=== PATIENT | male | born 1985 | race Caucasian/White ===

== ENCOUNTER 2019-07-11 07:24 | Inpatient (IN) ==
--- OUTSIDE RECORDS SUMMARY | 2019-07-11 07:26 | External Medical Summary | Continuity of Care Document ---
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) Palpitations (785.1) (R00.2) Allergies and Adverse Reactions No Known Drug Allergies (Allergy) Medications Escitalopram Oxalate 20 MG Oral Tablet; 1/2 tablet dalily for 1 week, then 1 daily Asha Chand Start: 13-Jul-2018 Quantity: 30 Refills: 2 Amoxicillin-Pot Clavulanate 875-125 MG Oral Tablet; Ta ke 1 tablet twice daily Asha Chand Start: 13-Jul-2018 Quantity: 20 Refills: 0 predniSONE 20 MG Oral Tablet; TAKE 2 TABLETS DAILY WITH FOOD Asha Chand Start: 13-Jul-2018 Quantity: 10 Refills: 0 Procedures Procedures not documented Immunizations DTaP, IPV/Hib (Pentacel) On: 1985 DTaP, IPV/Hib (Pentacel) On: 1985 DTaP On: Feb-1987 DTaP, IPV/Hib (Pentacel) On: 23-Jul-1988 MMR On: 23-Jul-1988 HIB On: Mar-1989 DTaP, IPV/Hib (Pentacel) On: 05-Apr-1993 MMR On: 12-Jul-1996 Hepatitis B On: 16-Oct-1999 Hepatitis B On: 22-Nov-1999 Hepatitis B On: 07-Jul-2000 DT On: 01-Jun-2003 Tubersol 5 UNIT/0.1ML Intradermal Solution On: 22-Sep-2018 8: 39 Lot #: [id number], [employer]ADDE[employer] PA[employer]UR Social History - Smoking Status Never smoker Plan of Treatment Planned Observations Planned Goals not documented Results No Known Results Results not documented Encounters Appointment; Nurse Shlomo 22-Sep-2018 8:15 Encounter Diagnosis: Problem not documented Appointment; Anitha Chand M.D. 13-Jul-2018 9:30 Encounter Diagnosis: Problem not documented Appointment; Kate Mars CRNP 24-Oct-2017 8:30 Encounter Diagnosis: Problem not documented Appointment; Luma Cartwright M.D. 23-Sep-2017 8:45 Encounter Diagnosis: Problem not documented Appointment; Nurse Shlomo 24-Sep-2018 8:15 Encounter Diagnosis: Problem not documented
[2019-07-11] MEDS ORDERED: ONDANSETRON INJ 2 MG/ML 2 ML VIAL IV STA (07:47)
[2019-07-11] MEDS: MoRPHine SULFATE 4 MG/ML 1 ML CARP\\VIAL IV PRN ×4 (07:56→18:22)
[2019-07-11] MEDS ORDERED: SODIUM CHLORIDE 0.9% 1000ML 1,000 ML IV SCH (08:00)
[2019-07-11 08:02] LABS: Basophils # (auto) 0.02 K/uL (0-0.2); Basophils % (auto) 0.2 %; Eosinophils # (auto) 0.03 K/uL (0-0.5); Eosinophils % (auto) 0.3 %; Hematocrit (blood only) 44.3 % (42-52); Hemoglobin 16.2 g/dL (14.0-18.0); Immature Granulocytes # (auto) 0.02 K/uL (0.00-0.02); Immature Granulocytes % (auto) 0.2 %; Lymphocytes # (auto) 1.22 K/uL (1.2-3.4); Lymphocytes % (auto) 11.4 %; Mean Corpuscular Hemoglobin 31.8 pg (25-34); Mean Corpuscular Hgb Conc 36.6 g/dL (32-36); Mean Platelet Volume 9.9 fL (7.4-10.4); Monocytes # (auto) 0.25 K/uL (0.11-0.59); Monocytes % (auto) 2.3 %; Neutrophils # (auto) 9.14 K/uL (1.4-6.5); Neutrophils % (auto) 85.6 %; Platelet Count 282 K/uL (130-400); RDW Coefficient of Variation 12.4 % (11.5-14.5); RDW Standard Deviation 39.8 fL (36.4-46.3); Red Blood Count 5.09 M/uL (4.7-6.1); White Blood Count 10.68 K/uL (4.8-10.8)
[2019-07-11 08:06] LABS: INR 1.1 (0.9-1.1); Prothrombin Time 10.9 Seconds (9.0-12.0)
[2019-07-11 08:09] LABS: Albumin Level 4.9 gm/dl (3.4-5.0); Calcium 9.9 mg/dl (8.5-10.1); Creatinine Clr Calc Pharmacy 129.7 ml/min; Est GFR (African American) 97.4; Potassium 3.8 mmol/L (3.5-5.1)
[2019-07-11 08:12] LABS: Albumin Globulin Ratio 1.4 (0.9-2); Bilirubin,Total 0.5 mg/dl (0.2-1); Globulin 3.4 gm/dl (2.5-4.0); Total Protein 8.3 gm/dl (6.4-8.2)
[2019-07-11 08:12] LABS: iSTAT Hemoglobin 14.3 g/dl (14.0-18.0); iSTAT Ionized Calcium 1.28 mmol/l (1.12-1.32); iSTAT Potassium 3.8 mEq/L (3.3-5.0)
--- NOTE | 2019-07-11 08:13 | XRay Report ---
XR chest 1V portable CLINICAL HISTORY: 34 years-old Male presenting with abd pain. TECHNIQUE: Portable upright AP view of the chest was obtained. COMPARISON: 02/27/2016. FINDINGS: Cardiomediastinal silhouette normal. No focal opacity. No large effusion or pneumothorax. Osseous str uctures normal. Upper abdomen normal. IMPRESSION: 1. No acute cardiopulmonary disease. Electronically signed by: Manas Valencia M.D. 07/11/2019 8:12 AM
[2019-07-11] MEDS ORDERED: HYDROmorphone INJ 1 MG/ML SYRINGE ONE (08:21)
[2019-07-11] MEDS: HYDROmorphone INJ 1 MG/ML SYRINGE IV PRN ×2 (08:23→09:35)
[2019-07-11] MEDS ORDERED: IOVERSOL 100ml IV PRN (08:42)
--- NOTE | 2019-07-11 08:57 | CT Scan Report ---
CT abd pelvis IV con only CLINICAL HISTORY: 34 years-old Male presenting with LLQ and generalized abdominal pain. TECHNIQUE: Multidetector CT of the abdomen and pelvis was performed after the administration of intra venous contrast. IV contrast: 95 mL of Optiray 320. One or more dose lowering techniques were used co nsistent with the principles of ALARA (as low as reasonably achievable), including automatic exposure control, mA or kV adjustment to individual patient size, and/or use of iterative reconstruction. COMPARISON: 09/20/2016. CT DOSE (mGy.cm): The estimated cumulative dose is 1502.17 mGy.cm. 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 Lung bases: Normal heart size. No pericardial or pleural effusion. No focal infiltrate or nodule at t he lung bases. Liver: Normal morphology. No liver lesion. Patent hepatic vasculature. Biliary: No intrahepatic or extrahepatic biliary ductal dilatation. Normal gallbladder. Pancreas: Normal. Spleen: Normal. Adrenal glands: Normal. Kidneys and ureters: Normal. No hydronephrosis. Bladder: Incompletely evaluated secondary to underdistention. Pelvic organs: Prostate and seminal vesicles normal. Bowel: Normal appendix. Feces in the terminal ileum consistent with delayed transit or bacterial over growth. Discontinuous sites of feces in the ileum without convincing evidence of a high-grade partial or complete bowel obstruction. Peritoneal cavity: No free fluid or intraperitoneal gas. Lymph nodes: No enlarged lymph nodes in the abdomen or pelvis. Vasculature: Aorta and IVC patent and normal in caliber. Abdominal wall: Small fat-containing left inguinal hernia. Musculoskeletal: Normal. IMPRESSION: 1. Discontinuous sites of fecal material within ileum and terminal ileum without convincing evidence of a high-grade partial or complete bowel obstruction. This may indicate bacterial overgrowth or del ayed transit. Alternatively, there could be multifocal sites of low-grade partial bowel obstructions though this is less likely. 2. No other evidence of acute intra-abdominal pathology. Electronically signed by: Manas Valencia M.D. 07/11/2019 8:56 AM
[2019-07-11 09:26] LABS: Appearance Urine Clear (Clear); Bilirubin Urine Negative (Negative); Blood Urine Negative (Negative); Color Urine Yellow; Glucose Urine UA Negative (Negative); Ketones Urine Negative (Negative); Leukocyte Esterase Urine Negative (Negative); Nitrite Urine Negative (Negative); Protein Urine Negative (Negative); Specific Gravity Urine > 1.045 (1.000-1.030); Urobilinogen Urine Negative (Negative)
--- NOTE | 2019-07-11 10:15 | Emergency Department Note ---
Entered by Yamileth Barrera acting as a scribe for Mino Corado DO History of Present Illness General Chief complaint: Abdominal Pain Stated complaint: ABD/BACK PAIN Source: patient History of Present Illness Provider complaint: Abdominal pain Onset (ago): week(s) 2 Location: back and abdomen Radiation: back Pain Consistency: + constant Maximum Pain Intensity: 10 Quality: + sharp Associated symptoms: + chest pain, + nausea/vomiting and + other (Positive: back pain, left lower abdominal pain, diarrhea, black tarry stools, intermittent right testicular pain) The patient is a 34 year old male with past medical history of abdominal pain who presents to the ED with complaints of constant sharp left lower abdominal pain that radiates to the back that started 2 weeks ago. The patient reports he has had diarrhea and black tarry stools for the last 4 days. He states his pain intensified around midnight to the point he was not able to get any relief. The patient notes he has nausea and vomiting. He additionally states he has had 5 episodes of watery stools in the last 24 hours. The patient reports his chest hurts when he breathes. He states he has had intermittent right testicular pain in the past but the pain is currently not present. Home Medications Home Medications Medication Instructions Recorded Confirmed Type No Known Home Medications 07/11/19 07/11/19 History Allergies Allergy/AdvReac Type Severity Reaction Status Date / Time cefaclor Allergy Unknown HIVES Verified 07/11/19 08:03 Past Med/Surg History Medical History Abdominal pain (Acute) Epigastric abdominal pain (Acute) Forehead laceration (Acute) Family History Other Cancer Diabetes Heart disease Hypertension Social History Preferred Language: Macedonian Communication Ability: Effective Lead Assistant Manager Required: No Beliefs That Will Affect Care: None Current Living Situation: Spouse Other Information That Helps Us Care for You: No Feels Safe at Home: Yes Safety Concerns: Feels Safe At This Time Smoking Status: Light tobacco smoker Tobacco Type: cigarettes ; Cigarettes Per Day: 1 pack in a year ; Do You Dip or Chew Tobacco: No ; Second Hand Exposure: No ; Tobacco Cessation Education Requested by Patient: No Hx Alcohol Use: Yes Hx Substance Use: No Review of Systems See HPI for pertinent positives & negatives. and A total of 10 systems reviewed and were otherwise negative Physical Exam Vital Signs Vital Signs - 24 hr 07/11/19 07:26 07/11/19 09:17 Temperature 36.5 C Temperature Source Oral Sepsis Recent Fever Within 48 Hours No Sepsis New/Unexplained Change in Mental Status No Sepsis Action Taken by Nursing No Action Required Pulse Rate 71 Pulse Rate [Apical] 74 Pulse Rhythm [Apical] Regular Pulse Strength [Apical] Normal Respiratory Rate 22 18 Respiratory Effort / Characteristics Non-Labored Non-Labored Spontaneous Respiratory Depth Normal Normal Respiratory Pattern Regular Blood Pressure 161/101 H Blood Pressure [Right Arm] 160/87 H Blood Pressure Mean 121 Blood Pressure Mean [Right Arm] 111 Blood Pressure Position Sitting Pulse Oximetry 100 98 Oxygen Delivery Method Room Air Room Air GENERAL: Patient is awake, alert, and in moderate distress. Patient is very uncomfortable and anxious appearing. EYES: The conjunctivae are clear. The pupils are round and reactive. EARS, NOSE, MOUTH AND THROAT: The nose is without any evidence of any deformity. Mucous membranes are moist.Tongue is midline NECK: The neck is nontender and supple. RESPIRATORY: Normal respiratory effort is noted. There is no evidence of wheezing rhonchi or rales to auscultation. CARDIOVASCULAR: Regular rate and rhythm noted. There no murmurs rubs or gallops normal S1 normal S2 GASTROINTESTINAL: The abdomen is soft. Bowel sounds are present in all quadrants. Abdomen is moderately distended and diffusely tender. There is guarding in the left upper and lower to palpation. BACK: No midline tenderness or or step-off noted range of motion in flexion extension as well as rotation no signs of muscle spasm noted. RECTAL: Brown stool, heme negative. Testicles were descended and non-tender bilaterally. MUSCULOSKELETAL/EXTREMITIES: There is no evidence of gross deformity. Full range of motion is noted in the hips and shoulders. SKIN: There is no obvious evidence of any rash. There are no petechiae, pallor or cyanosis noted. Cool and diaphoretic. No pedal edema. NEUROLOGIC: Patient is awake alert and oriented x3. Strength is symmetric. Patellar reflexes are 2+ bilaterally. Course 0736: The patient was evaluated in room A10 by the medical student, Jayme Patel, under my supervision. 0746: The patient was evaluated in room A10. A complete history and physical exam was performed. 0917: Upon reevaluation, the patient is resting comfortably. I discussed laboratory and radiographic results with him. The patient verbalized agreement of the treatment plan. The patient will be evaluated for further management and care. 0936: I discussed the braden's case with Dr. Delacruz, [facility] Hospitalist. He will evaluate the patient for further management. Consultations Consultation #1: I discussed the braden's case with Dr. Delacruz, [facility] ospitalist. He will evaluate the patient for further management. Time: 09:36 Administered Medications Lactated Ringer's (Lr) 1,000 mls @ 80 mls/hr IV .[id number] ANTELMO Stop: 08/10/19 10:18 Last Admin: 07/11/19 10:37 Dose: 80 mls/hr Documented by: [id number] Ciprofloxacin (Cipro) 400 mg in 200 mls @ 100 mls/hr IV Q12H ANTELMO; Protocol Stop: 07/21/19 11:14 Last Infusion: 07/11/19 14:50 Dose: 0 mls/hr Documented by: [id number] Admin: 07/11/19 12:58 Dose: 100 mls/hr Documented by: [id number] Metronidazole (Flagyl) 500 mg in 100 mls @ 100 mls/hr IV Q8H ANTELMO Stop: 07/21/19 11:14 Last Infusion: 07/11/19 14:00 Dose: 0 mls/hr Documented by: [id number] Admin: 07/11/19 12:58 Dose: 100 mls/hr Documented by: [id number] Morphine Sulfate (Morphine Sulfate) 4 mg IV Q4H PRN PRN Reason: Severe Pain Stop: 07/25/19 10:18 Last Admin: 07/11/19 14:38 Dose: 4 mg Documented by: [id number] Ondansetron HCl (Zofran) 4 mg IV Q6H PRN PRN Reason: Nausea Stop: 08/10/19 10:18 Last Admin: 07/11/19 14:38 Dose: 4 mg Documented by: [id number] Discontinued Medications Hydromorphone HCl (Dilaudid) Confirm Administered Dose 1 mg .ROUTE .STK-MED ONE Stop: 07/11/19 08:22 Last Admin: 07/11/19 08:24 Dose: Not Given Documented by: [id number] Hydromorphone HCl (Dilaudid) 1 mg IV Q15M PRN PRN Reason: Pain Stop: 07/25/19 08:20 Last Admin: 07/11/19 09:35 Dose: 1 mg Documented by: [id number] Admin: 07/11/19 08:23 Dose: 1 mg Documented by: [id number] Sodium Chloride (Nss 1000ml) 1,000 mls @ 999 mls/hr IV .Q1H1M ANTELMO Stop: 07/11/19 09:00 Last Infusion: 07/11/19 09:14 Dose: 0 mls/hr Documented by: [id number] Admin: 07/11/19 07:56 Dose: 999 mls/hr Documented by: [id number] Famotidine 20 mg/ Syringe 5 mls @ 2.5 mls/min IV NOW ONE Stop: 07/11/19 11:31 Last Admin: 07/11/19 12:58 Dose: 2.5 mls/min Documented by: [id number] Ioversol (Optiray 320 100ml) 95 ml IV ONCE PRN PRN Reason: Interaction Checking Stop: 07/15/19 08:41 Last Admin: 07/11/19 08:43 Dose: 95 ml Documented by: [id number] Morphine Sulfate (Morphine Sulfate) 4 mg IV Q15M PRN PRN Reason: Pain Stop: 07/25/19 07:46 Last Admin: 07/11/19 08:11 Dose: 4 mg Documented by: [id number] Admin: 07/11/19 07:56 Dose: 4 mg Documented by: [id number] Morphine Sulfate (Morphine Sulfate) Confirm Administered Dose 4 mg .ROUTE .STK- MED ONE Stop: 07/11/19 10:28 Last Admin: 07/11/19 10:37 Dose: 4 mg Documented by: [id number] Ondansetron HCl (Zofran) 4 mg IV NOW STA Stop: 07/11/19 07:48 Last Admin: 07/11/19 07:56 Dose: 4 mg Documented by: [id number] Medical Decision Making Differential Diagnosis Differential diagnosis: Etiologies such as appendicitis, diverticulitis, PUD, biliary pathology, UTI, pancreatitis, obstruction, mesenteric ischemia, aortic pathology, infections, inflammatory bowel disease, renal colic, as well as others were entertained. Medical Records Attestation: I reviewed the patient's medical records. Home Medications Current Medication List: was personally reviewed by me (No known home medications ) Laboratory Data Attestation: I reviewed the patient's lab results. Result diagrams: 07/11/19 07:40 07/11/19 07:40 Lab Results 07/11/19 07/11/19 07/11/19 Range/Units 07:40 07:40 07:40 WBC 10.68 (4.8-10.8) K/uL RBC 5.09 (4.7-6.1) M/uL Hgb 16.2 (14.0-18.0) g/dL POC Hgb (14.0-18.0) g/dl Hct 44.3 (42-52) % POC Hct (42-52) % MCV 87.0 (80-100) fL MCH 31.8 (25-34) pg MCHC 36.6 H (32-36) g/dL RDW Std Deviation 39.8 (36.4-46.3) fL RDW Coeff of Eulalio 12.4 (11.5-14.5) % Plt Count 282 (130-400) K/uL MPV 9.9 (7.4-10.4) fL Immature Gran % (Auto) 0.2 % Neut % (Auto) 85.6 % Lymph % (Auto) 11.4 % Rapides % (Auto) 2.3 % Eos % (Auto) 0.3 % Baso % (Auto) 0.2 % Immature Gran # (Auto) 0.02 (0.00-0.02) K/uL Neut # (Auto) 9.14 H (1.4-6.5) K/uL Lymph # (Auto) 1.22 (1.2-3.4) K/uL Rapides # (Auto) 0.25 (0.11-0.59) K/uL Eos # (Auto) 0.03 (0-0.5) K/uL Baso # (Auto) 0.02 (0-0.2) K/uL PT 10.9 (9.0-12.0) Seconds INR 1.1 (0.9-1.1) POC Sodium (135-144) mEq/L Sodium 142 (136-145) mmol/L POC Potassium (3.3-5.0) mEq/L Potassium 3.8 (3.5-5.1) mmol/L POC Chloride (101-112) mEq/L Chloride 108 H (98-107) mmol/L Carbon Dioxide 26 (21-32) mmol/L POC Total CO2 (24-31) mEq/l Anion Gap 8.0 (3-11) POC Anion Gap (16-25) mmol/L POC BUN (7-18) mg/dl BUN 17 (7-18) mg/dl Creatinine 1.14 (0.6-1.4) mg/dl POC Creatinine (0.6-1.3) mg/dl Est Cr Clr Drug Dosing 129.7 ml/min Est GFR ( Amer) 97.4 Est GFR (Non-Af Amer) 84.0 BUN/Creatinine Ratio 15.0 (10-20) Glucose 126 H (70-99) mg/dl POC Glucose (other) (70-99) mg/dl Calcium 9.9 (8.5-10.1) mg/dl POC Ioniz Calcium Cristian (1.12-1.32) mmol/l Total Bilirubin 0.5 (0.2-1) mg/dl AST 21 (15-37) U/L ALT 49 (12-78) U/L Alkaline Phosphatase 48 (45-117) U/L Total Protein 8.3 H (6.4-8.2) gm/dl Albumin 4.9 (3.4-5.0) gm/dl Globulin 3.4 (2.5-4.0) gm/dl Albumin/Globulin Ratio 1.4 (0.9-2) Lipase 84 (73-393) U/L Urine Color Urine Appearance (Clear) Urine pH (4.5-7.5) Ur Specific Sarles (1.000-1.030) Urine Protein (Negative) Urine Glucose (UA) (Negative) Urine Ketones (Negative) Urine Blood (Negative) Urine Nitrite (Negative) Urine Bilirubin (Negative) Urine Urobilinogen (Negative) Ur Leukocyte Esterase (Negative) 07/11/19 07/11/19 Range/Units 07:59 09:15 WBC (4.8-10.8) K/uL RBC (4.7-6.1) M/uL Hgb (14.0-18.0) g/dL POC Hgb 14.3 (14.0-18.0) g/dl Hct (42-52) % POC Hct 42 (42-52) % MCV (80-100) fL MCH (25-34) pg MCHC (32-36) g/dL RDW Std Deviation (36.4-46.3) fL RDW Coeff of Eulalio (11.5-14.5) % Plt Count (130-400) K/uL MPV (7.4-10.4) fL Immature Gran % (Auto) % Neut % (Auto) % Lymph % (Auto) % Rapides % (Auto) % Eos % (Auto) % Baso % (Auto) % Immature Gran # (Auto) (0.00-0.02) K/uL Neut # (Auto) (1.4-6.5) K/uL Lymph # (Auto) (1.2-3.4) K/uL Rapides # (Auto) (0.11-0.59) K/uL Eos # (Auto) (0-0.5) K/uL Baso # (Auto) (0-0.2) K/uL PT (9.0-12.0) Seconds INR (0.9-1.1) POC Sodium 143 (135-144) mEq/L Sodium (136-145) mmol/L POC Potassium 3.8 (3.3-5.0) mEq/L Potassium (3.5-5.1) mmol/L POC Chloride 105 (101-112) mEq/L Chloride (98-107) mmol/L Carbon Dioxide (21-32) mmol/L POC Total CO2 25 (24-31) mEq/l Anion Gap (3-11) POC Anion Gap 18.0 (16-25) mmol/L POC BUN 17 (7-18) mg/dl BUN (7-18) mg/dl Creatinine (0.6-1.4) mg/dl POC Creatinine 1.0 (0.6-1.3) mg/dl Est Cr Clr Drug Dosing ml/min Est GFR ( Amer) Est GFR (Non-Af Amer) BUN/Creatinine Ratio (10-20) Glucose (70-99) mg/dl POC Glucose (other) 132 H (70-99) mg/dl Calcium (8.5-10.1) mg/dl POC Ioniz Calcium Cristian 1.28 (1.12-1.32) mmol/l Total Bilirubin (0.2-1) mg/dl AST (15-37) U/L ALT (12-78) U/L Alkaline Phosphatase (45-117) U/L Total Protein (6.4-8.2) gm/dl Albumin (3.4-5.0) gm/dl Globulin (2.5-4.0) gm/dl Albumin/Globulin Ratio (0.9-2) Lipase (73-393) U/L Urine Color Yellow Urine Appearance Clear (Clear) Urine pH 5.0 (4.5-7.5) Ur Specific Sarles > 1.045 H (1.000-1.030) Urine Protein Negative (Negative) Urine Glucose (UA) Negative (Negative) Urine Ketones Negative (Negative) Urine Blood Negative (Negative) Urine Nitrite Negative (Negative) Urine Bilirubin Negative (Negative) Urine Urobilinogen Negative (Negative) Ur Leukocyte Esterase Negative (Negative) Imaging Data Radiologist's Impression: Radiology results as stated below per my review and the radiologist's interpretation: CT abd pelvis IV con only CLINICAL HISTORY: 34 years-old Male presenting with LLQ and generalized abdominal pain. TECHNIQUE: Multidetector CT of the abdomen and pelvis was performed after the administration of intravenous contrast. IV contrast: 95 mL of Optiray 320. One or more dose lowering techniques were used consistent with the principles of ALARA (as low as reasonably achievable), including automatic exposure control, mA or kV adjustment to individual patient size, and/or use of iterative reconstruction. COMPARISON: 09/20/2016. CT DOSE (mGy.cm): The estimated cumulative dose is 1502.17 mGy.cm. 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 Lung bases: Normal heart size. No pericardial or pleural effusion. No focal infiltrate or nodule at the lung bases. Liver: Normal morphology. No liver lesion. Patent hepatic vasculature. Biliary: No intrahepatic or extrahepatic biliary ductal dilatation. Normal gallbladder. Pancreas: Normal. Spleen: Normal. Adrenal glands: Normal. Kidneys and ureters: Normal. No hydronephrosis. Bladder: Incompletely evaluated secondary to underdistention. Pelvic organs: Prostate and seminal vesicles normal. Bowel: Normal appendix. Feces in the terminal ileum consistent with delayed t ransit or bacterial overgrowth. Discontinuous sites of feces in the ileum without convincing evidence of a high-grade partial or complete bowel obstruction. Peritoneal cavity: No free fluid or intraperitoneal gas. Lymph nodes: No enlarged lymph nodes in the abdomen or pelvis. Vasculature: Aorta and IVC patent and normal in caliber. Abdominal wall: Small fat-containing left inguinal hernia. Musculoskeletal: Normal. IMPRESSION: 1. Discontinuous sites of fecal material within ileum and terminal ileum without convincing evidence of a high-grade partial or complete bowel obstruction. This may indicate bacterial overgrowth or delayed transit. Alternatively, there could be multifocal sites of low-grade partial bowel obstructions though this is less likely. 2. No other evidence of acute intra-abdominal pathology. Electronically signed by: Manas Valencia M.D. 07/11/2019 8:56 AM XR chest 1V portable CLINICAL HISTORY: 34 years-old Male presenting with abd pain. TECHNIQUE: Portable upright AP view of the chest was obtained. COMPARISON: 02/27/2016. FINDINGS: Cardiomediastinal silhouette normal. No focal opacity. No large effusion or pne umothorax. Osseous structures normal. Upper abdomen normal. IMPRESSION: 1. No acute cardiopulmonary disease. Electronically signed by: Manas Valencia M.D. 07/11/2019 8:12 AM Blood Pressure Blood Pressure Findings: Elevated blood pressure Blood Pressure Disposition: further management by hospitalist DALTON Brush The patient is a 34-year-old male who presented to the emergency department with severe abdominal pain. The patient's history and physical exam do appear to be consistent with a surgical abdomen initially. He had very significant pain and was guarding. The patient's rectal exam revealed brown stool which was heme- negative. There is no stool in the vault however. The patient did have significant left lower quadrant abdominal pain. Is been worsening over the last 2 weeks. The patient was treated with IV fluids and IV pain medication. It took a significant amount of pain medication to make the patient comfortable. He was reevaluated multiple times. I discussed the patient's laboratory and radiographic studies with him. He was found to have some abnormality in the bowel which could be consistent with a partial bowel obstruction. Given his physical exam and these findings I discussed his case with the on-call [facility] hospitalist group. Likely the patient will require further work-up or possibly evaluation by gastroenterology and surgery to evaluate the course of action. He was feeling much better on subsequent reevaluation. I discussed his findings with his significant other as well. Impression & Plan Abdominal pain, acute, left lower quadrant, Bowel obstruction Discharge Plan Visit Data *Final* Discharge Date/Time: 07/11/19 10:00 Chief Complaint: Abdominal Pain Stated Complaint: ABD/BACK PAIN ED Provider: Mino Corado Discharge Problem: Abdominal pain, acute, left lower quadrant, Bowel obstruction Patient Disposition: Admitted As Inpatient Discharge Instructions Interventions: ED Discharge Assessment Last Done: 07/11/19 10:00 Discharge Problem: Bowel obstruction Qualifiers: Intestinal obstruction type: unspecified Intestinal obstruction extent: partial Qualified Code(s): K56.600 - Partial intestinal obstruction, unspecified as to cause The scribe's documentation has been prepared under my direction and personally reviewed by me in its entirety. I confirm that the note above accurately reflect s all work, treatment, procedures, and medical decision making performed by me.
[2019-07-11] MEDS ORDERED: MoRPHine SULFATE 2 MG/ML CARP IV PRN (10:19)
[2019-07-11] MEDS ORDERED: MoRPHine SULFATE 4 MG/ML 1 ML CARP\\VIAL ONE (10:27)
[2019-07-11] MEDS: LACTATED RINGER'S 1,000 ML IV SCH ×2 (10:37→21:48)
[2019-07-11] MEDS ORDERED: FAMOTIDINE 20MG/5ML IV PUSH IV STA (11:03)
--- NOTE | 2019-07-11 11:16 | History & Physical Report ---
Date of Service July 11, 2019 Assessment & Plan (1) Abdominal pain, acute, left lower quadrant: Currently unclear etiology Associated with melena Admit to telemetry IV fluid hydration Pain management GI consultation Obtain stool cultures/C. difficile/white blood cell/occult blood Initiate empiric Cipro/Flagyl Obtain lipase to rule out underlying pancreatitis SCD boots for DVT prophylax (2) Melena: Clear liquid diet in case needs to be scoped Pepcid IV x1 Protonix 40 mg p.o. twice daily Occult blood in his stool (3) Bowel obstruction: CT scan abdomen and pelvis showed 1. Discontinuous sites of fecal material within ileum and terminal ileum without convincing evidence of a high-grade partial or complete bowel obstruction. This may indicate bacterial overgrowth or delayed transit. Alternatively, there could be multifocal sites of low-grade partial bowel obstructions though this is less likely. 2. No other evidence of acute intra-abdominal pathology. Does not really fit the clinical picture thus far but will monitor closely. (4) Right testicular pain: He mentioned that to the ED physician, currently no testicular pain If the pain reoccurred he needs to do ultrasound as an outpatient (5) Elevated blood sugar: Ordered hemoglobin A1c History of Present Illness 34 years old man with past medical history of chronic diarrhea, intermittent but overall mainly postprandial. Patient said like about 5 days ago he felt a lump in his left upper quadrant, a little bit of discomfort but he did not pay much attention to it. Currently the lump disappeared and then 3 to 4 days ago he developed severe diarrhea with black stools and significant abdominal pain all o jensen his abdomen referred to his mid back. Around midnight he vomited more than 6 times, did not look in his vomit to see if there is blood or not he said the bathroom was dark and he flushed it right away . His stool was black tarry. Abdominal pain became progressively worse, more squeezing crampy like, associated with epigastric tightness and heartburn. He mentioned to the ER physician of pain in the right testicle in the past which he did not mention to me Primary Care Provider: NO PCP Allergies Allergy/AdvReac Type Severity Reaction Status Date / Time cefaclor Allergy Unknown HIVES Verified 07/11/19 08:03 Home Medications Home Medications Medication Instructions Recorded Confirmed Type No Known Home Medications 07/11/19 07/11/19 History Past Med/Surg History Medical History Abdominal pain (Acute) Epigastric abdominal pain (Acute) Forehead laceration (Acute) Family History Other Cancer Diabetes Heart disease Hypertension Social History Preferred Language: German Communication Ability: Effective Ob/Gyn Physician Required: No Beliefs That Will Affect Care: None Current Living Situation: Spouse Other Information That Helps Us Care for You: No Feels Safe at Home: Yes Safety Concerns: Feels Safe At This Time Smoking Status: Light tobacco smoker Tobacco Type: cigarettes ; Cigarettes Per Day: 1 pack in a year ; Do You Dip or Chew Tobacco: No ; Second Hand Exposure: No ; Tobacco Cessation Education Requested by Patient: No Hx Alcohol Use: Yes Hx Substance Use: No Review of Systems Review of Systems: Review of system Constitutional: No fever / no chills /positive for fatigue and weakness Eyes: no blurring of vision / no eye pain / no discharge / no redness ENT: no hearing loss / no epistaxis /no swallowing problems Respiratory: no cough / no wheezing / no SOB / no hemoptysis Cardiovascular: no Chest pain / no lower extremity edema / no palpitation Abdomen: Positive for generalized abdominal pain, diarrhea black tarry stool Musculoskeletal: no joint pain / no muscle pain / no joint swelling Genitourinary: no dysuria / no incontinence / no urinary retention Neurologic: no focal weakness / no numbness/tingling / no ataxia Psychiatric: no depression symptoms / no anxiety / no insomnia Endocrine: no excessive thirst / no excessive urination Hematologic: no abnormal bleeding / no bruising / no LN swelling Skin: No rash / no pallor Physical Exam Physical Exam: Physical examination General patient appears to be comfortable, not in acute distress HEENT: Atraumatic , normocephalic /no jaundice /no pallor /anicteric /no dry mucous membrane /normal external ear inspection Neck: Supple /no swelling /central trach Heart: S1/S2 normal/regular rate and rhythm/no gallop /no rub /no murmur Lungs: Clear to auscultation bilaterally/normal chest with expansion/no rhonchi/no rales/no wheezing/no use of accessory muscles of respiration Abdomen: Generalized tenderness all over his abdomen, no masses Musculoskeletal: No swelling/no edema/no tenderness/normal range of motion Neuro exam: Awake alert oriented 3/cranial nerves II through XII appear to be intact/sensation intact/moves all extremities/no abnormal movements Psychiatric evaluation: No depressed mood/normal affect Skin: No rash on exposed skin area/no erythema Extremity: Normal pulse/no pitting edema/no clubbing or cyanosis Results & Data Vital Signs (Past 12 Hours) Vital Signs Temp Pulse Pulse Pulse Resp BP BP 07/11/19 10:20 36.4 C L 71 20 151/94 H 07/11/19 09:17 74 18 07/11/19 07:26 36.5 C 71 22 161/101 H BP Pulse Ox 07/11/19 10:20 97 07/11/19 09:17 160/87 H 98 07/11/19 07:26 100 Code Status & VTE Plan VTE Prophylaxis Plan VTE Prophylaxis will be ordered: No PG Care Time/CCT Total # of Minutes Spent Total Time Spent with Patient: 35 minutes total time spent is greater than 50% in coordination of care (as documented) at patient's floor/unit and/or counseling patient/family discussion of care with nursing staff (1) Bowel obstruction Intestinal obstruction extent: partial Intestinal obstruction type: unspecified Qualified Code(s): K56.600 - Partial intestinal obstruction, unspecified as to cause
[2019-07-11] MEDS ORDERED: FAMOTIDINE 20 MG in SYRINGE 3 ML IV ONE (11:30)
[2019-07-11] MEDS: CIPROFLOXACIN 400 MG/200 ML BAG IV SCH (12:58)
[2019-07-11] MEDS: metroNIDAZOLE 500 MG/100 ML BAG IV SCH ×2 (12:58→19:40)
[2019-07-11] MEDS: ONDANSETRON INJ 2 MG/ML 2 ML VIAL IV PRN (14:38)
[2019-07-11] MEDS ORDERED: PROMETHAZINE HCL 25 MG in SODIUM CHLORIDE 0.9% 50 ML IV STA (18:12)
[2019-07-11] MEDS: PANTOprazole 40 MG TAB PO SCH (19:40)
[2019-07-12] MEDS: CIPROFLOXACIN 400 MG/200 ML BAG IV SCH ×2 (00:25→12:03)
[2019-07-12] MEDS: metroNIDAZOLE 500 MG/100 ML BAG IV SCH ×3 (03:16→21:12)
[2019-07-12] MEDS: ACETAMINOPHEN 325 MG TAB PO PRN ×2 (05:18→10:20)
[2019-07-12 05:53] LABS: Estimated Average Glucose 82 mg/dl; Hemoglobin A1C 4.5 % (4.5-5.6)
[2019-07-12 06:52] LABS: Basophils # (auto) 0.02 K/uL (0-0.2); Basophils % (auto) 0.2 %; Eosinophils # (auto) 0.07 K/uL (0-0.5); Eosinophils % (auto) 0.7 %; Hematocrit (blood only) 39.3 % (42-52); Hemoglobin 13.9 g/dL (14.0-18.0); Immature Granulocytes # (auto) 0.01 K/uL (0.00-0.02); Immature Granulocytes % (auto) 0.1 %; Lymphocytes # (auto) 1.45 K/uL (1.2-3.4); Lymphocytes % (auto) 14.3 %; Mean Corpuscular Hemoglobin 31.4 pg (25-34); Mean Corpuscular Hgb Conc 35.4 g/dL (32-36); Mean Corpuscular Volume 88.9 fL (80-100); Mean Platelet Volume 9.5 fL (7.4-10.4); Monocytes # (auto) 0.99 K/uL (0.11-0.59); Monocytes % (auto) 9.8 %; Neutrophils # (auto) 7.59 K/uL (1.4-6.5); Neutrophils % (auto) 74.9 %; Platelet Count 216 K/uL (130-400); RDW Coefficient of Variation 12.5 % (11.5-14.5); RDW Standard Deviation 40.3 fL (36.4-46.3); Red Blood Count 4.42 M/uL (4.7-6.1); White Blood Count 10.13 K/uL (4.8-10.8)
[2019-07-12 07:32] LABS: Albumin Level 3.6 gm/dl (3.4-5.0); BUN Creatinine Ratio 14.1 (10-20); Creatinine Clr Calc Pharmacy 166.2 ml/min; Est GFR (African American) 130.2; Est GFR (Non-African American) 112.3; Potassium 3.7 mmol/L (3.5-5.1)
[2019-07-12] MEDS: PANTOprazole 40 MG TAB PO SCH ×2 (07:36→21:12)
[2019-07-12] MEDS: MoRPHine SULFATE 4 MG/ML 1 ML CARP\\VIAL IV PRN ×2 (07:37→12:03)
[2019-07-12 07:38] LABS: Albumin Globulin Ratio 1.1 (0.9-2); Bilirubin,Total 0.9 mg/dl (0.2-1); C Reactive Protein 2.45 mg/dl (0-0.29); Globulin 3.1 gm/dl (2.5-4.0); Total Protein 6.7 gm/dl (6.4-8.2)
[2019-07-12] MEDS: LACTATED RINGER'S 1,000 ML IV SCH ×2 (10:18→21:12)
--- NOTE | 2019-07-12 10:38 | Gastrointestinal Consultation ---
Date of Consultation July 12, 2019 Assessment & Plan (1) Abdominal pain, acute, left lower quadrant: -Colonoscopy on 07/13/2019 for further evaluation -Clear liquids okay today; NPO after midnight -Golytely prep ordered Present on Admission?: Yes (2) Melena: -Continue to monitor H/H -EGD & colonoscopy ordered for 07/13/2019 -Protonix 40 mg po BID for now Present on Admission?: Yes (3) Chronic diarrhea: Has not had diarrhea since admission -Stool studies were ordered but unable to be obtained as he has not had diarrhea while admitted -Check Celiac panel -Colonoscopy 07/13/2019 Present on Admission?: Yes (4) Unintended weight loss: -Endoscopic evaluation planned for 07/13/2019 Present on Admission?: Yes Supervising Physician Co-Signing Physician Notes I personally evaluated the patient and agree with the findings and plan as documented by Trinidad Steward, NATE Exam: abd: soft, mild RUQ tenderness, nondistended, no hsm History of Present Illness Reason for Consultation: "Several weeks of abdominal pain" Attending Physician: Tom Marroquin History of Present Illness Patient is a 34 yo male without significant PMH who presents to [facility] with abdominal pain. He reports that for several weeks, he has had left sided abdominal pain. It has been on the entire left side at various points, however since admission it has localized to the LLQ. A CT scan indicated fecal material within the ileum but an obstruction was not favored. CT findings do not correlate with his symptoms. His CRP is elevated at 2.45. There is a reported 30-40 pound weight loss (unintentional) within the past 6 months. He reports a family history of diverticulitis. He was febrile last night. He is not having diarrhea at present (no bowel movements since admission), however he has a history of chronic, post-prandial diarrhea. He reports associated nausea & vomiting. He has a history of an EGD occurring years ago, but is unsure of the results. His BUN/Cr are normal. H/H 13.9/39.3. Metabolic panel is unremarkable. He offers no further acute complaints. No NSAID use. 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 Required: No Beliefs That Will Affect Care: None Current Living Situation: Spouse Other Information That Helps Us Care for You: No Feels Safe at Home: Yes Safety Concerns: Feels Safe At This Time Smoking Status: Light tobacco smoker Tobacco Type: cigarettes ; Cigarettes Per Day: 1 pack in a year ; Do You Dip or Chew Tobacco: No ; Second Hand Exposure: No ; Tobacco Cessation Education Requested by Patient: No Hx Alcohol Use: Yes Hx Substance Use: No Review of Systems Constitutional: + fever and + weight loss; no chills Eyes: no acute issues Ear, Nose, Mouth, Throat: no acute issues Respiratory: no cough and no dyspnea Cardiovascular: no chest pain Gastrointestinal: + abdominal pain, + nausea, + vomiting, + diarrhea/loose sto ols and + melena Musculoskeletal: no acute issues Integumentary: no rash Neurologic: no reported issues Psychiatric: no acute complaints Endocrine: + fatigue Physical Exam Constitutional: WD/WN, vitals as above Eyes: PERRL, conjunctivae normal, anicteric sclerae ENMT: external ear and nose normal, oropharynx normal Neck: normal visual inspection Respiratory: normal respiratory effort, lungs clear to auscultation Cardiovascular: RRR, no murmur, no edema Gastrointestinal (Abdomen): Inspection/Auscultation: normal bowel sounds Percussion/Palpation: + abdomen tender and abdomen soft Musculoskeletal: no cyanosis or clubbing, extremities motor strength 5/5 Skin: no rashes, warm and dry Psychiatric: A+Ox3, euthymic affect Results & Data Vital Signs (Past 12 Hours) Vital Signs Temp Pulse Resp BP Pulse Ox 07/12/19 07:33 37.9 C H 90 17 135/76 98 PG Care Time/CCT Total # of Minutes Spent Total Time Spent with Patient: Total time spent is greater than 50% in coordination of care (as documented) at patient's floor/unit and/or counseling patient: : Bowel obstruction Qualifiers: Intestinal obstruction type: unspecified Intestinal obstruction extent: partial Qualified Code(s): K56.600 - Partial intestinal obstruction, unspecified as to cause
[2019-07-12] MEDS ORDERED: KETOROLAC 30 MG/ML VIAL IV ONE (14:04)
[2019-07-12] MEDS ORDERED: KETOROLAC 30 MG/ML VIAL ONE (14:07)
[2019-07-12] MEDS: LAVAGE SOLUTION 4000ML PO SCH (18:11)
[2019-07-12] MEDS: ONDANSETRON INJ 2 MG/ML 2 ML VIAL IV PRN (18:39)
--- NOTE | 2019-07-12 19:53 | Hospitalist Progress Note ---
Date of Service July 12, 2019 Assessment & Plan (1) Abnormal CT of the abdomen: Pattern of his bowels on CT is unusual. Much of the issue is centered in the ileum. With his weight loss could he have IBD? celiac? other? GI consult appreciated. They are planning EGD with colonoscopy tomorrow for diagnosis. Send stool studies but doubt this is infectious. (2) Abdominal pain, acute, left lower quadrant: Initiated on empiric Cipro/Flagyl at time of admission. See "CT of abdomen" above. Weight loss, CT findings, symptoms, etc all concerning. EGD/colonoscopy tomorrow. celiac panel sent. treat pain. appreciate GI consult. (3) Severe protein-calorie malnutrition: 30-40 pounds weight loss this summer. check b12 level am. would benefit from MVI, boost, etc. (4) Melena: cont PPI await EGD/colonoscopy H/H acceptable today (5) Right testicular pain: resolved has not recurred (6) Elevated blood sugar: hemoglobin A1c 4.5% no T2DM likely due to stress of GI issues updated at bedside today Subjective patient states he has lost 30-40 pounds of weight this summer. unintentional. no change in diet. has had chronic diarrhea "for years" (within 15 minutes of eating gets diarrhea). no culprit foods to his knowledge. 2 weeks ago started w/ left-sided abdominal pain. constant, present at night-time as well. no obvious fevers. liquid stools have continued. recently stools have been dark. pain has shifted to right side of abdomen as well. Review of Systems Constitutional: + fever; no chills and no anorexia Ear, Nose, Mouth, Throat: denies mouth sores Respiratory: no dyspnea Cardiovascular: no chest pain Gastrointestinal: + abdominal pain, + nausea, + vomiting, + diarrhea/loose stools and + melena Musculoskeletal: no joint pain Integumentary: no rash Physical Exam Constitutional: + acute distress (due to abd pain); no altered mental status ENMT: external ear and nose normal, oropharynx normal no ulcers Respiratory: normal respiratory effort, lungs clear to auscultation Cardiovascular: RRR, no murmur, no edema Heart Sounds: normal S1 and normal S2 Vessels: posterior tibial pulses present and dorsalis pedis pulses present Gastrointestinal (Abdomen): Inspection/Auscultation: normal bowel sounds Percussion/Palpation: + abdomen tender (left side of abdomen - mild) and abdomen soft; no guarding and no hepatosplenomegaly Skin: no rashes, warm and dry Psychiatric: A+Ox3, euthymic affect Results & Data Vital Signs (Past 12 Hours) Vital Signs Temp Pulse Resp BP Pulse Ox 07/12/19 15:24 37.2 C 83 17 150/67 H 97 07/12/19 11:08 36.9 C 82 17 136/87 96 Laboratory Results Laboratory Results - last 24 hr 07/11/19 07/12/19 07/12/19 11:23 06:38 06:38 WBC 10.13 RBC 4.42 L Hgb 13.9 L Hct 39.3 L MCV 88.9 MCH 31.4 MCHC 35.4 RDW Std Deviation 40.3 RDW Coeff of Eulalio 12.5 Plt Count 216 MPV 9.5 Immature Gran % (Auto) 0.1 Neut % (Auto) 74.9 Lymph % (Auto) 14.3 [place] % (Auto) 9.8 Eos % (Auto) 0.7 Baso % (Auto) 0.2 Immature Gran # (Auto) 0.01 Neut # (Auto) 7.59 H Lymph # (Auto) 1.45 [place] # (Auto) 0.99 H Eos # (Auto) 0.07 Baso # (Auto) 0.02 ESR Sodium 142 Potassium 3.7 Chloride 108 H Carbon Dioxide 26 Anion Gap 8.0 BUN 13 Creatinine 0.89 Est Cr Clr Drug Dosing 166.2 Est GFR ( Amer) 130.2 Est GFR (Non-Af Amer) 112.3 BUN/Creatinine Ratio 14.1 Glucose 99 Estimat Average Glucose 82 Hemoglobin A1c 4.5 Calcium 9.0 Magnesium 2.0 Total Bilirubin 0.9 AST 14 L ALT 36 Alkaline Phosphatase 38 L C-Reactive Protein 2.45 H Total Protein 6.7 Albumin 3.6 Globulin 3.1 Albumin/Globulin Ratio 1.1 Lipase 73 Stl C. diff Tox B Gene IgA Tiss Transglutamin IgA Celiac Disease Interp 07/12/19 07/12/19 07/12/19 06:38 11:18 19:15 WBC RBC Hgb Hct MCV MCH MCHC RDW Std Deviation RDW Coeff of Eulalio Plt Count MPV Immature Gran % (Auto) Neut % (Auto) Lymph % (Auto) [place] % (Auto) Eos % (Auto) Baso % (Auto) Immature Gran # (Auto) Neut # (Auto) Lymph # (Auto) [place] # (Auto) Eos # (Auto) Baso # (Auto) ESR 2 Sodium Potassium Chloride Carbon Dioxide Anion Gap BUN Creatinine Est Cr Clr Drug Dosing Est GFR ( Amer) Est GFR (Non-Af Amer) BUN/Creatinine Ratio Glucose Estimat Average Glucose Hemoglobin A1c Calcium Magnesium Total Bilirubin AST ALT Alkaline Phosphatase C-Reactive Protein Total Protein Albumin Globulin Albumin/Globulin Ratio Lipase Stl C. diff Tox B Gene Pending IgA Pending Tiss Transglutamin IgA Pending Celiac Disease Interp Pending PG Care Time/CCT Total # of Minutes Spent Total Time Spent with Patient: Total time spent is greater than 50% in coordination of care (as documented) at patient's floor/unit and/or counseling patient:
[2019-07-12] MEDS ORDERED: PANTOprazole 40 MG TAB PO SCH (21:00)
[2019-07-12] MEDS ORDERED: KETOROLAC TROMETHAMINE 15 MG/ML VIAL IV ONE (21:26)
[2019-07-13] MEDS: CIPROFLOXACIN 400 MG/200 ML BAG IV SCH ×2 (00:02→12:15)
[2019-07-13] MEDS: metroNIDAZOLE 500 MG/100 ML BAG IV SCH ×2 (04:01→12:15)
[2019-07-13] MEDS: LAVAGE SOLUTION 4000ML PO SCH (04:01)
[2019-07-13] MEDS: ONDANSETRON INJ 2 MG/ML 2 ML VIAL IV PRN ×2 (04:01→10:36)
[2019-07-13 07:41] LABS: BUN Creatinine Ratio 11.7 (10-20); Calcium 9.2 mg/dl (8.5-10.1); Est GFR (African American) 132.7; Est GFR (Non-African American) 114.5; Potassium 3.5 mmol/L (3.5-5.1)
[2019-07-13] MEDS: MoRPHine SULFATE 4 MG/ML 1 ML CARP\\VIAL IV PRN (07:41)
--- NOTE | 2019-07-13 08:25 | Anesthesiology Consultation ---
Date of Service July 13, 2019 Assessment & Plan Chart Review Chart Review: Acceptable Risk for Surgery and Patient NOT seen in Pre Admission Testing Consults Requested none ASA ASA2 Proposed Anesthesia Anesthesia Type: MAC Risk / Benefits Reviewed With: PT / POA / Parent / Guardian, Accepts Plan and Informed Consent Obtained History Surgery Operation Date: 07/13/19 08:30 Proposed Procedures p Colonoscopy EGD Dr. Leroy Harper MD Height/Weight Height: 6 ft 2 in Weight: 125.5 kg Allergies Allergy/AdvReac Type Severity Reaction Status Date / Time cefaclor Allergy Unknown HIVES Verified 07/11/19 08:03 Medications Home Medications Medication Instructions Recorded Confirmed Last Taken No Known Home Medications 07/11/19 07/11/19 Unknown Active Medications Generic Name Dose Route Start Last Admin Trade Name Freq PRN Reason Stop Dose Admin Acetaminophen 650 mg 07/11/19 10:07/12/19 10:20 Tylenol PO 08/10/19 10:18 650 mg Q4H PRN Administration pain/fever Lactated Ringer's 1,000 mls @ 80 mls/hr 07/11/19 10:07/13/19 12:51 Lr IV 08/10/19 10:18 0 mls/hr .[id number] ANTELMO Infusion Ciprofloxacin 400 mg in 200 mls @ 100 mls/hr 07/11/19 12:00 07/13/19 12:51 Cipro IV 07/21/19 11:14 0 mls/hr Q12H ANTELMO Infusion Protocol Metronidazole 500 mg in 100 mls @ 100 mls/hr 07/11/19 12:00 07/13/19 12:51 Flagyl IV 07/21/19 11:14 0 mls/hr Q8H ANTELMO Infusion Morphine Sulfate 4 mg 07/11/19 10:07/13/19 07:41 Morphine Sulfate IV 07/25/19 10:18 4 mg Q4H PRN Administration Severe Pain Ondansetron HCl 4 mg 07/11/19 10:07/13/19 10:36 Zofran IV 08/10/19 10:18 4 mg Q6H PRN Administration Nausea Pantoprazole Sodium 40 mg 07/11/19 21:00 07/13/19 11:48 Protonix PO 08/10/19 20:59 Not Given BID ANTELMO NPO Date Last Intake of Fluids: 07/12/19 Time Last Intake of Fluids: 23:10 Date Last Intake of Solids: 07/10/19 Time Last Intake of Solids: 17:00 Past Medical History Medical History Abdominal pain (Acute) Epigastric abdominal pain (Acute) Forehead laceration Exercise / Class Metabolic Activity II 4-5 Yardwork/Stairs/Walk up hill Negative for chest pain or shortness of breath. Past Family History Family History Other Cancer Diabetes Heart disease Hypertension Past Surgical History Surgical History No significant past surgical history Past Anesthesia History No Family Hx of Anesthesia Complications History of PONV No Hx of Motion Sickness Social History Smoking Status: Light tobacco smoker tobacco type: cigarettes Smoking cigarettes per day: 1 pack in a year Do You Dip or Chew Tobacco: No Hx Alcohol Use: Yes alcohol intake frequency: 0-2 drinks per day Hx Substance Use: No Review of Systems Patient denies active symptoms of GERD. Physical Exam Vital Signs Last Vital Signs Temp 37.3 C 07/13/19 13:19 Pulse 66 07/13/19 13:19 Resp 18 07/13/19 13:19 BP 151/80 H 07/13/19 13:19 Pulse Ox 97 07/13/19 13:19 Constitutional + obese ENMT Mouth: no TMJ abnormality and oral opening not small Thyromental Distance: > or= 3.5 Finger Breadths Mallampati Class: I Neck normal visual inspection and + facial hair; neck extension not limited Respiratory normal respiratory effort Auscultation: lungs clear to auscultation bilaterally Cardiovascular Rate/Rhythm: regular rate and regular rhythm Heart Sounds: no murmur Neurologic moves all extremities Psychiatric Orientation: alert and oriented x 3 Testing Laboratory Results 07/12/19 06:38 07/13/19 06:53 PT 10.9 Seconds (9.0-12.0) 07/11/19 07:40 INR 1.1 (0.9-1.1) 07/11/19 07:40 Hemoglobin A1c 4.5 % (4.5-5.6) 07/11/19 11:23 Urine Color Yellow 07/11/19 09:15 Urine Appearance Clear (Clear) 07/11/19 09:15 Urine pH 5.0 (4.5-7.5) 07/11/19 09:15 Ur Specific [place] > 1.045 (1.000-1.030) H 07/11/19 09:15 Urine Protein Negative (Negative) 07/11/19 09:15 Urine Glucose (UA) Negative (Negative) 07/11/19 09:15 Urine Ketones Negative (Negative) 07/11/19 09:15 Urine Nitrite Negative (Negative) 07/11/19 09:15 Ur Leukocyte Esterase Negative (Negative) 07/11/19 09:15 07/12/19 19:15 WBC Smear - Final Stool
[2019-07-13] MEDS: LACTATED RINGER'S 1,000 ML IV SCH (08:57)
--- NOTE | 2019-07-13 09:42 | History & Physical Bridge Note ---
Date of Service July 13, 2019 History & Physical Bridge Note I have examined the patient, reviewed the History & Physical and in the interval since the performance of the History & Physical I have noted the following changes of clinical significance: no changes noted. Patient has completed his bowel prep. He reports some LLQ pain and RUQ pain. He denies acute issues otherwise. Remain NPO. Proceed with colonoscopy & EGD today. Supervising Physician Co-Signing Physician Notes I personally evaluated the patient and agree with the findings and plan as documented by Trinidad Steward, PAC Exam: abd: soft, nt, nd
[2019-07-13] MEDS ORDERED: ACETAMINOPHEN 1,000 MG/100 ML VIAL IV STA (11:07)
[2019-07-13] MEDS: PANTOprazole 40 MG TAB PO SCH ×2 (11:48→21:12)
[2019-07-13] MEDS ORDERED: PROPOFOL IV EMULSION 10 MG/ML 20 ML VIAL IV ONE (13:11)
[2019-07-13] MEDS ORDERED: LIDOCAINE HCL 2% 2 ML VIAL/AMP(20MG/ML) INFIL ONE (13:11)
[2019-07-13] MEDS ORDERED: fentaNYL citrate 100 MCG/2 ML VIAL ONE (13:39)
--- NOTE | 2019-07-13 15:04 | GI REPORT ---
Patient Name: Francisco Diana Procedure Date: 07/13/2019 1:22 PM Date of : 1985 Admit Type: Inpatient Age: 34 Gender: Male Attending MD: Robin Harper MD Procedure: Upper GI endoscopy Providers: Robin Harper MD Referring MD: Tom Marroquin Indications: Abdominal pain in the left lower quadrant, Melena Medicines: Monitored Anesthesia Care Complications: No immediate complications. Estimated blood loss: None. Estimated Blood Loss: Estimated blood loss: none. Procedure: Pre-Anesthesia Assessment: - Prior Anticoagulants: The patient has taken no previous anticoagulant or antiplatelet agents. - ASA Grade Assessment: II - A patient with mild systemic disease. After obtaining informed consent, the endoscope was passed under direct vision. Throughout the procedure, the patient's blood pressure, pulse, and oxygen saturations were monitored continuously. The Endoscope was introduced through the mouth, and advanced to the second part of duodenum. The upper GI endoscopy was accomplished without difficulty. The patient tolerated the procedure well. Findings: The examined esophagus was normal. The Z-line was regular and was found 37 cm from the incisors. A small hiatal hernia was present. Diffuse moderate inflammation was found in the gastric antrum. Biopsies were taken with a cold forceps for Helicobacter pylori testing. The second portion of the duodenum was normal. Impression: - Normal esophagus. - Z-line regular, 37 cm from the incisors. - Small hiatal hernia. - Acute gastritis. Biopsied. - Normal second portion of the duodenum. Recommendation: - Resume previous diet today. - Await pathology results. - [facility] patient [facility] care. Robin Harper MD 07/13/2019 3:04:45 PM This report has been signed electronically. Note Initiated On: 07/13/2019 1:22 PM Number of Addenda: 0 I attest to the content of the Intraoperative Record and orders documented therein, exceptions below {[id number]}
--- NOTE | 2019-07-13 15:10 | GI REPORT ---
Patient Name: Francisco Diana Procedure Date: 07/13/2019 1:19 PM Date of : 1985 Admit Type: Inpatient Age: 34 Gender: Male Attending MD: Robin Harper MD Procedure: Colonoscopy Providers: Robin Harper MD Referring MD: Tom Marroquin Indications: Abdominal pain in the left lower quadrant, Melena, Weight loss Medicines: Monitored Anesthesia Care Complications: No immediate complications. Estimated blood loss: None. Estimated Blood Loss: Estimated blood loss: none. Procedure: Pre-Anesthesia Assessment: - ASA Grade Assessment: II - A patient with mild systemic disease. - Prior Anticoagulants: The patient has taken no previous anticoagulant or antiplatelet agents. After I obtained informed consent, the scope was passed under direct vision. Throughout the procedure, the patient's blood pressure, pulse, and oxygen saturations were monitored continuously. The scope was introduced through the anus and advanced to the cecum, identified by appendiceal orifice and ileocecal valve. The colonoscopy was performed without difficulty. The patient tolerated the procedure well. The quality of the bowel preparation was fair. Findings: The perianal and digital rectal examinations were normal. Non-bleeding internal hemorrhoids were found during retroflexion. The hemorrhoids were mild. Impression: - Non-bleeding internal hemorrhoids. - No specimens collected. Recommendation: - Return patient to [facility] for ongoing care. - Resume previous diet today. Robin Harper MD 07/13/2019 3:09:29 PM This report has been signed electronically. Note Initiated On: 07/13/2019 1:19 PM Number of Addenda: 0 I attest to the content of the Intraoperative Record and orders documented therein, exceptions below {[id number]}
--- NOTE | 2019-07-13 15:11 | Anesthesiology Progress Note ---
Date of Service July 13, 2019 Anesthesia Post Procedure Vital Signs Vital Signs: Temp Pulse Resp BP BP Pulse Ox 07/13/19 15:09 73 18 122/83 99 07/13/19 14:54 37.0 C 62 18 120/73 97 07/13/19 13:19 37.3 C 66 18 151/80 H 97 07/13/19 07:19 36.9 C 61 17 131/77 96 07/12/19 23:18 36.6 C 73 19 111/71 93 07/12/19 15:24 37.2 C 83 17 150/67 H 97 Pain Intensity Abdomen: Pain Intensity: 8 Transfer of Care Handoff Completed per policy Notes Mental Status: alert / awake / arousable and participated in evaluation Nausea / Vomiting: adequately controlled Pain: adequately controlled Airway Patency, RR, SpO2: stable & adequate BP & HR: stable & adequate Hydration State: stable & adequate Anesthetic Complications: no major complications apparent and Pt Satisfied with anesthetic care
[2019-07-13] MEDS ORDERED: KETOROLAC 30 MG/ML VIAL IV PRN (19:09)
[2019-07-13] MEDS ORDERED: ACETAMINOPHEN 325 MG TAB PO PRN (19:09)
--- NOTE | 2019-07-13 20:47 | Hospitalist Progress Note ---
Date of Service July 13, 2019 Assessment & Plan (1) Abnormal CT of the abdomen: Pattern of his bowels on CT is unusual. Much of the issue is centered in the ileum. colonoscopy today fully normal and without pathology to explain symptoms. no obvious signs of IBD seen. EGD with gastritis only; duodenum normal. celiac panel pending c diff and stool cx negative etiology?? appreciate GI consult advance diet to full liquids cont IV fluids overnight stop cipro/flagyl - no source to warrant antibiotics (2) Abdominal pain, acute, left lower quadrant: Left sided abd pain is resolved. The pain went away with his bowel prep suggesting some element of stool stasis? Pain is now RLQ c/w the ileum abnormalities seen on CT. etiology still uncertain. EGD w/ gastritis only - this does not explain his presenting symptoms. colonoscopy normal however no mention of TI. appreciate GI consultation/assistance. celiac panel pending however duodenum looked grossly normal. (3) Severe protein-calorie malnutrition: 30-40 pounds weight loss this summer. b12 level wnl. would benefit from MVI, boost, etc at discharge. etiology of weight loss still uncertain. (4) Melena: cont PPI due to gastritis? EGD/colonoscopy - with exception of gastritis - normal. H/h have been stable since admission. (5) Right testicular pain: resolved has not recurred (6) Elevated blood sugar: hemoglobin A1c 4.5% no T2DM likely due to stress of GI issues if pain controlled in am, doing well w/ diet -- could d/c home with close GI f/u Subjective s/p EGD/colonoscopy today. I saw him post-endoscopies and he said that his left-sided abd discomfort is resolved. with the bowel prep for c-scope he noted that his left-sided pains went away with such. he now has a lower grade discomfort in the RLQ region but not severe. he reports poor appetite following his scopes today. he is not drinking fluids well. has had intermittent headaches while here. states they respond to tylenol. Review of Systems Constitutional: no fever Respiratory: no cough and no dyspnea Cardiovascular: no chest pain Gastrointestinal: as per Subjective / HPI and + abdominal pain; no belching, no bloating, no early satiety, no heartburn, no nausea, no vomiting, no cramping, no blood in stools and no melena Physical Exam Constitutional: no acute distress and no altered mental status ENMT: external ear and nose normal, oropharynx normal Respiratory: normal respiratory effort, lungs clear to auscultation Cardiovascular: RRR, no murmur, no edema Heart Sounds: normal S1 and normal S2 Vessels: posterior tibial pulses present and dorsalis pedis pulses present Gastrointestinal (Abdomen): Inspection/Auscultation: normal bowel sounds Percussion/Palpation: + abdomen tender (RLQ - mild) and abdomen soft; no guarding and no hepatosplenomegaly Skin: no rashes, warm and dry Psychiatric: A+Ox3, euthymic affect Results & Data Vital Signs (Past 12 Hours) Vital Signs Temp Pulse Resp BP Pulse Ox 07/13/19 15:23 64 18 139/82 99 07/13/19 15:09 73 18 122/83 99 07/13/19 14:54 37.0 C 62 18 120/73 97 07/13/19 13:19 37.3 C 66 18 151/80 H 97 Laboratory Results Laboratory Results - last 24 hr 07/13/19 07/13/19 06:53 06:53 Sodium 139 Potassium 3.5 Chloride 106 Carbon Dioxide 26 Anion Gap 8.0 BUN 10 Creatinine 0.85 Est Cr Clr Drug Dosing 174.0 Est GFR ( Amer) 132.7 Est GFR (Non-Af Amer) 114.5 BUN/Creatinine Ratio 11.7 Glucose 92 Calcium 9.2 Vitamin B12 408 PG Care Time/CCT Total # of Minutes Spent Total Time Spent with Patient: Total time spent is greater than 50% in coordination of care (as documented) at patient's floor/unit and/or counseling patient:
[2019-07-14] MEDS: LACTATED RINGER'S 1,000 ML IV SCH (00:23)
[2019-07-14] MEDS: PANTOprazole 40 MG TAB PO SCH (08:00)
--- NOTE | 2019-07-14 08:53 | Anesthesiology Progress Note ---
Date of Service July 14, 2019 Anesthesia Post Procedure Vital Signs Vital Signs: Temp Pulse Resp BP BP Pulse Ox 07/14/19 07:00 36.6 C 50 L 20 145/83 H 98 07/13/19 23:11 36.7 C 65 18 124/74 98 07/13/19 15:23 64 18 139/82 99 07/13/19 15:09 73 18 122/83 99 07/13/19 14:54 37.0 C 62 18 120/73 97 07/13/19 13:19 37.3 C 66 18 151/80 H 97 Pain Intensity Abdomen: Pain Intensity: 8 Notes Mental Status: alert / awake / arousable and participated in evaluation Patient Amnestic to Procedure: Yes Nausea / Vomiting: adequately controlled Pain: adequately controlled Airway Patency, RR, SpO2: stable & adequate BP & HR: stable & adequate Hydration State: stable & adequate Anesthetic Complications: no major complications apparent and Pt Satisfied with anesthetic care
--- NOTE | 2019-07-14 10:11 | Discharge Summary ---
Date of Service date of admission - July 11, 2019 date of discharge - July 14, 2019 Admission HPI Per Admitting Provider 34 year old man with past medical history of post-prandial chronic diarrhea who presents after feeling a lump in the left upper quadrant of his abdomen about 5 days ago. He had a little bit of discomfort but he did not pay much attention to it. The lump disappeared and then 3 to 4 days ago he developed severe diarrhea with black stools and significant abdominal pain all over his abdomen. Some of the pain referred to his mid back. Then, around midnight the night of admission, he vomited more than 6 times. Stools continued to be black and tarry. Abdominal pain became progressively worse as well. The pain then became squeezing and crampy in quality. He had associated epigastric tightness and heartburn. Therefore he came to the ER to be evaluated. Lastly, he reported intermittent right testicular pain for several months if not longer. He denied feeling a lump in the scrotum or on the testicle. Principal Diagnosis abdominal pain - improved; exact etiology uncertain Discharge Exam Constitutional no acute distress and no altered mental status ENMT external ear and nose normal, oropharynx normal Respiratory normal respiratory effort, lungs clear to auscultation Cardiovascular RRR, no murmur, no edema Heart Sounds: normal S1 and normal S2 Vessels: posterior tibial pulses present and dorsalis pedis pulses present Gastrointestinal (Abdomen) Inspection/Auscultation: normal bowel sounds Percussion/Palpation: + abdomen tender (RLQ - scant) and abdomen soft; no guarding and no hepatosplenomegaly Skin no rashes, warm and dry Psychiatric A+Ox3, euthymic affect Genitourinary + spermatocele (vs epidydimal cyst on right; none on left; tender over the cyst); no penis abnormality, no hydrocele, no varicocele, no meatus abnormal, no edematous scrotum, no inguinal hernia, no testicular swelling and no testicular tenderness Discharge Data Allergies Allergy/AdvReac Type Severity Reaction Status Date / Time cefaclor Allergy Unknown HIVES Verified 07/11/19 08:03 Consultations [facility] Gastroenterology Procedures Performed Operation Date: 07/13/19 EGD Biopsy Cytology - Robin Harper MD * normal esophagus * normal duodenum * mild gastritis - biopsied Colonoscopy - Robin Harper MD * internal hemorrhoids * otherwise normal colonic architecture Ordered Studies CT abd pelvis - IMPRESSION: 1. Discontinuous sites of fecal material within ileum and terminal ileum without convincing evidence of a high-grade partial or complete bowel obstruction. This may indicate bacterial overgrowth or delayed transit. Alternatively, there could be multifocal sites of low-grade partial bowel obstructions though this is less likely. 2. No other evidence of acute intra-abdominal pathology. Hospital Course (1) Abdominal pain, acute, left lower quadrant: Left sided abdominal pain resolved while hospitalized. The pain went away with his bowel prep for the colonoscopy suggesting some element of stool stasis / constipation. EGD with gastritis only - this does not explain his presenting symptoms. Colonoscopy was normal. Celiac panel was sent and was pending however the duodenum looked grossly normal during EGD. Following his scopes he was resumed on a diet and this was advanced w/o difficulty. He will need follow-up with Holger THOMPSON to review biopsy results, celiac panel, and discuss other testing if his symptoms persist. (2) Abnormal CT of the abdomen: The pattern of his bowels on CT was unusual. Much of the issue centered in the ileum on his imaging. Colonoscopy was fully normal and without pathology to explain his symptoms. There were no obvious signs of IBD seen. EGD with gastritis only; duodenum normal. celiac panel pending c diff and stool cx negative etiology of CT findings? fecal stasis? other? GI follow-up post-discharge advised. (3) Severe protein-calorie malnutrition: 30-40 pounds weight loss this summer. b12 level wnl. would benefit from MVI, boost, etc at discharge. etiology of weight loss still uncertain in light of normal EGD/colonoscopy. (4) Melena: Report of melena by patient at time of admission. Due to gastritis? EGD/colonoscopy - with exception of gastritis - were normal. H/h were stable since admission. He will d/c home on a 1-month treatment course of protonix for the gastritis. (5) Unintended weight loss: 30-40 pounds of weight loss over the last 3-4+ months. Exact etiology uncertain as EGD and colonoscopy did not reveal specific pathology. Celiac panel pending. Additional outpatient work-up advised. (6) Chronic diarrhea: C diff negative. Stool culture negative. Outpatient GI follow-up advised. (7) Elevated blood sugar: hemoglobin A1c 4.5% no T2DM likely due to stress of GI issues only occurred once while here (8) Right testicular pain: intermittent, chronic. he has either a spermatocele or epididymal cyst on the right side. I recommended he talk with his PCP to obtain a scrotal u/s for confirmation. Total Time Total Time Spent Total Time Spent (In Minutes): 35 Total Time Includes: Examination of the Patient, Discharge Planning and Medication Reconciliation Discharge Plan Discharge Items Patient Disposition: Home - Self-Care Reason For Visit: ABDOMINAL PAIN, DARK STOOLS Discharge Diagnosis: 1. Abdominal pain - resolved 2. Chronic loose stool - no infections found 3. Weight loss - uncertain cause Goals: 1. resolve abdominal pain 2. determine etiology of weight loss, loose stool, etc Activity: Resume your previous activity Non-emergency contact: Primary Care Provider and Color Weigher Call non-emergency contact if: you have any medication questions, your symptoms worsen, your pain is not controlled, your pain is worsening, your pain is unusual for you, your pain is concerning for you and you have a fever Follow-up/Referrals: Trinidad Steward PA-C [Physician Bean Dumper] - (see Steward, [facility] , within 1-2 weeks) Anitha Chand MD [Primary Care Provider] - 07/21/19 11:30 am (A follow up appt. has been made for you with Dr. Chand on Friday, Jul.21 at 11:30am.) Diet: Regular Addtl Attending Provider Instructions: You were admitted due to abdominal pain, dark stools, chronic diarrhea, and weight loss. CAT scan of the abdomen showed possible back-up of stool. We did not see evidence of cancer. Stool cultures were negative for bacterial infections. Holger THOMPSON saw you in consult and recommended upper endoscopy (EGD) and colonoscopy. EGD showed mild gastritis (irritation of the stomach lining) but otherwise was normal. No cancer was seen. Colonoscopy showed mild internal hemorrhoids but NO colon cancer, obvious evidence of ulceration colitis or Crohn's disease, etc. Your symptoms actually improved with the bowel prep for the colonoscopy suggesting that, at a minimum, you were indeed "backed up" (constipation). This would not explain your weight loss however. Recommendations: 1. take omeprazole acid fuse spooler 40mg once daily every morning for 1 month for the gastritis. You can stop after 1 month. 2. take an cvet-puy-rhvtlno fiber supplement (metamucil powder, capsules, etc) once daily to see if this will help regulate your bowels and stools. This will also help prevent the hemorrhoids from getting any worse. 3. please talk to your family doctor about having a scrotal ultrasound to confirm if you have small epididymal cyst or spermatocele (both are benign/not harmful) on the right side as the cause of your pain. 4. keep a food diary to see if specific foods, if any, make your Gi symptoms worse. 5. follow-up -- see separate section. 6. Return to [facility] if -- * you have recurrent abdominal pains * you have recurrent nausea, vomiting, or severe diarrhea * you are unable to eat or keep things down * you develop scrotal swelling, redness, or severe tenderness * any other concerns Pending Studies at Discharge: Yes Studies:: 1. celiac disease blood work 2. biopsy from your stomach Stand-Alone Forms: Call Back Authorization, [facility], Work/School Release (Inpt) Medications and DC Order Prescriptions: New omeprazole 40 mg capsule,delayed release(DR/EC) 40 mg PO QAM Qty: 30 RF: 0 Discharge Orders: Discharge Order (Routine); Ordered 07/14/19 Ordered By: Tom Marroquin Admission Data Admit Date/Time: 07/12/19 14:04 Attending Provider: Tom Marroquin Admit Provider: Nik Delacruz Primary Care Provider: Anitha Chand Other Providers: Nik Delacruz ; Darien Stubbs Other Interventions: Discharge Summary Assessment (RN) Last Done: 07/14/19 10:44 DC Date/Time DO NOT enter until pt leaves facility: 07/14/19 10:55
[2019-07-17 23:21] LABS: IgA Serum 108 mg/dL (47-310); Tis Trans IgA 1 U/mL (<4)
== END 2019-07-14 10:55 | disposition home or self-care (01) | DRG 377 ==
LOC: ED 07:24 → 2N 07:24 → SUATTDRO 09:41 → 2N 10:00